=== PATIENT | female | born 1945 | race Hispanic/Latino ===

== ENCOUNTER 2020-05-25 14:10 | Inpatient (IN) | payer OTHER, MEDICARE ==
[2020-05-25 15:20] LABS: Basophils # (Auto) 0.1 K/mm3 (0.0-0.1); Basophils % (Auto) 1.2 % (0.0-1.8); Eosinophils # (Auto) 0.1 K/mm3 (0.0-0.4); Eosinophils % (Auto) 1.9 % (0.0-4.3); Hematocrit 33.7 % (30.3-42.9); Hemoglobin 10.7 gm/dl (10.1-14.3); Lymphocytes # (Auto) 2.2 K/mm3 (1.2-5.4); Lymphocytes % (Auto) 32.2 % (13.4-35.0); Mean Corpuscular HGB Conc 32 % (30-34); Mean Corpuscular Volume 91 fl (79-97); Monocytes # (Auto) 0.6 K/mm3 (0.0-0.8); Monocytes % (Auto) 8.6 % (0.0-7.3); Platelet Count 247 K/mm3 (140-440); Red Blood Count 3.73 M/mm3 (3.65-5.03); Red Cell Distribution Width 17.1 % (13.2-15.2)
[2020-05-25] MEDS ORDERED: SODIUM CHLORIDE 0.9% 500 ML 500 ML IV ONE (15:20)
--- NOTE | 2020-05-25 15:24 | Cat Scan Report ---
CT head/brain wo con INDICATION: Fall, head trauma. TECHNIQUE: Routine CT head without contrast. All CT scans at this location are performed using CT dose reduction for ALARA by means of automated exposure control. COMPARISON: None. FINDINGS: BRAIN / INTRACRANIAL CONTENTS: No acute hemorrhage, brain edema, mass effect, or hydrocephalus. Mary l umanzor-white differentiation. Moderate chronic small vessel ischemic change in the cerebral white mat ter. 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 CALVARIUM/SKULL BASE/CRANIOCERVICAL JUNCTION: No evidence of fracture. ORBITS: No significant abnormality of visualized orbits. SINUSES / MASTOIDS: No significant abnormality of visualized sinuses and mastoid air cells. ADDITIONAL FINDINGS: None. IMPRESSION: 1. No acute post-traumatic intracranial abnormality. Signer Name: Dyllan Morgan MD Signed: 05/25/2020 3:20 PM Workstation Name: [id number]
--- NOTE | 2020-05-25 15:31 | Emergency Department Report ---
<HALEYJOSE MIGUEL LOZOYA Michell - Last Filed: 05/25/20 15:52> ED General Adult HPI - General Chief complaint: Fall Stated complaint: FALL/FROM [facility] Time Seen by Provider: 05/25/20 14:32 Source: EMS Mode of arrival: Stretcher Limitations: Altered Mental Status - History of Present Illness Initial comments: This is a 74-year-old female who is an inpatient at a psychiatric facility. She is here with staff. The accompanying lady tells me that she was ambulating with a walker and somehow fell backwards onto her buttocks. She complained of posterior pain secondary to the impact involving the back of her head and her "sacrum". She denied any neck discomfort whatsoever. She arrives at this emergency department awake and alert. She is agitated and apparently has a psychiatric disorder. She does answer some questions appropriately but largely states "I do not know" in a loud voice. She is oriented x3. She does not further complain of discomfort of the back of her head and does deny neck pain. She has some lower lumbar/sacral discomfort. She is only partially cooperative with exam. Accompanying staff state that the incident occurred approximately 2 hours prior to arrival. She tells me that the patient's blood pressure was found to be in the 70s and that is what precipitated the call to EMS. When EMS arrived the pa zeke was awake and alert and had a systolic blood pressure of near 100 or in the 90s. Patient was transported for further evaluation without incident. -: Gradual Location: head, back Radiation: non-radiation Improves with: none Worsens with: none Associated Symptoms: denies other symptoms (Although limited history) - Related Data Allergies Allergy/AdvReac Type Severity Reaction Status Date / Time No Known Allergies Allergy Unverified 05/25/20 15:29 ED Review of Systems Comment: Unobtainable due to pts medical conditions (Poorly obtainable due to psychiatric disorder) ED Past Medical Hx - Past Medical History Previous Medical History?: Yes Hx Hypertension: Yes Hx Congestive Heart Failure: Yes Hx Diabetes: Yes Hx Renal Disease: Yes Additional medical history: CAD, pelvic mass, aortic stenosis - Surgical History Past Surgical History?: Yes Additional Surgical History: Tricuspid valve repair, appendectomy - Social History Smoking Status: Never Smoker Substance Use Type: None ED Physical Exam - General Limitations: Other (Psychiatric disorder) General appearance: alert, other (A bit agitated) - Head Head exam: Present: atraumatic (No bleeding no gross cephalhematoma), normocephalic - Eye Eye exam: Present: normal appearance. Absent: scleral icterus - ENT ENT exam: Present: mucous membranes moist - Neck Neck exam: Present: normal inspection, full ROM (No apparent limitation). Absent: tenderness, meningismus - Respiratory Respiratory exam: Present: normal lung sounds bilaterally. Absent: respiratory distress - Cardiovascular Cardiovascular Exam: Present: regular rate, normal rhythm. Absent: systolic murmur, diastolic murmur, rubs, gallop - GI/Abdominal GI/Abdominal exam: Present: soft, normal bowel sounds. Absent: distended, tenderness, guarding, rebound - Extremities Exam Extremities exam: Present: normal inspection - Back Exam Back exam: Present: normal inspection - Neurological Exam Neurological exam: Present: alert, oriented X3, CN II-XII intact. Absent: motor sensory deficit - Psychiatric Psychiatric exam: Present: agitated, anxious - Skin Skin exam: Present: warm, dry, intact, normal color. Absent: rash ED Course - Reevaluation(s) Reevaluation #1: Patient was mildly hypotensive. A bolus of fluid was ordered. She remained quite agitated. She is given a case picker dose of chemical sedation to facilitate her work-up. Admission to the hospital is anticipated for hypotensive episode/near syncope as well as what ever else turns up in her medical screening. 05/25/20 15:41 Reevaluation #2: Signed out to Dr. Remi Robertson. 05/25/20 15:53 ED Medical Decision Making - Lab Data Result diagrams: 05/25/20 14:47 05/25/20 14:47 Laboratory Results - last 24 hr 05/25/20 05/25/20 05/25/20 14:47 14:47 14:47 WBC 6.8 RBC 3.73 Hgb 10.7 Hct 33.7 MCV 91 MCH 29 MCHC 32 RDW 17.1 H Plt Count 247 Lymph % (Auto) 32.2 [place] % (Auto) 8.6 H Eos % (Auto) 1.9 Baso % (Auto) 1.2 Lymph # 2.2 [place] # 0.6 Eos # 0.1 Baso # 0.1 Seg Neutrophils % 56.1 Seg Neutrophils # 3.8 PT 13.6 INR 1.03 APTT 24.5 D-Dimer 877.39 H Sodium 141 Potassium 4.3 Chloride 100.9 Carbon Dioxide 25 Anion Gap 19 BUN 31 H Creatinine 2.4 H Estimated GFR 20 BUN/Creatinine Ratio 13 Glucose 103 H Calcium 9.4 Magnesium Total Bilirubin Direct Bilirubin Indirect Bilirubin AST ALT Alkaline Phosphatase Troponin T NT-Pro-B Natriuret Pep Total Protein Albumin Albumin/Globulin Ratio 05/25/20 14:47 WBC RBC Hgb Hct MCV MCH MCHC RDW Plt Count Lymph % (Auto) [place] % (Auto) Eos % (Auto) Baso % (Auto) Lymph # [place] # Eos # Baso # Seg Neutrophils % Seg Neutrophils # PT INR APTT D-Dimer Sodium Potassium Chloride Carbon Dioxide Anion Gap BUN Creatinine Estimated GFR BUN/Creatinine Ratio Glucose Calcium Magnesium 2.50 H Total Bilirubin 0.60 Direct Bilirubin 0.3 H Indirect Bilirubin 0.3 AST 24 ALT 12 Alkaline Phosphatase 52 Troponin T 0.011 NT-Pro-B Natriuret Pep 970.6 H Total Protein 6.3 Albumin 3.4 L Albumin/Globulin Ratio 1.2 ED Disposition Clinical Impression: Hypotensive episode, Acute renal failure, Fall Disposition: DC-09 OP ADMIT IP TO THIS HOSP Condition: Stable <SHASHI SHANKRA - Last Filed: 05/25/20 18:34> ED Review of Systems ROS: Stated complaint: FALL/FROM [facility] Other details as noted in HPI ED Course Vital Signs 05/25/20 05/25/20 05/25/20 14:24 14:44 16:30 Temperature 98.4 F Pulse Rate 60 59 L Respiratory 16 16 18 Rate Blood Pressure 101/50 Blood Pressure 107/49 [Left] O2 Sat by Pulse 97 97 Oximetry ED Medical Decision Making - Lab Data Result diagrams: 05/25/20 14:47 05/25/20 14:47 - EKG Data -: EKG Interpreted by Me EKG shows normal: sinus rhythm Rate: normal - EKG Data Interpretation: no acute changes - Radiology Data Radiology results: report reviewed - Medical Decision Making This is a 74-year-old female who is an inpatient at a psychiatric facility. She is here with staff. The accompanying lady tells me that she was ambulating with a walker and somehow fell backwards onto her buttocks. She complained of posterior pain secondary to the impact involving the back of her head and her "sacrum". She denied any neck discomfort whatsoever. She arrives at this emergency department awake and alert. She is agitated and apparently has a psy chiatric disorder. She does answer some questions appropriately but largely states "I do not know" in a loud voice. She is oriented x3. She does not further complain of discomfort of the back of her head and does deny neck pain. She has some lower lumbar/sacral discomfort. She is only partially cooperative with exam. Accompanying staff state that the incident occurred approximately 2 hours prior to arrival. She tells me that the patient's blood pressure was found to be in the 70s and that is what precipitated the call to EMS. When EMS arrived the patient was awake and alert and had a systolic blood pressure of near 100 or in the 90s. Patient was transported for further evaluation without incident. IV access obtained and patient received normal saline with significant improvement in her blood pressure. Labs reviewed and showed a creatinine of 2.4 indicating possible acute versus acute on chronic renal failure most likely secondary to dehydration. CT brain and a CT lumbar spine is negative for acute finding. D-dimer elevated and patient had a VQ scan of the chest and it came back as low probability for pulmonary embolism. I discussed the patient with Suellen Daniel, he agreed to admit the patient to medical service for further management. Critical Care Time: Yes Critical care time in (mins) excluding proc time.: 30 Critical care attestation.: If time is entered above; I have spent that time in minutes in the direct care of this critically ill patient, excluding procedure time. ED Disposition Is pt being admited?: Yes
[2020-05-25 15:33] LABS: INR 1.03 (0.87-1.13); Partial Thromboplastin Time 24.5 Sec. (24.2-36.6)
--- NOTE | 2020-05-25 15:38 | Cat Scan Report ---
CT LUMBAR SPINE WITHOUT CONTRAST INDICATION: Fall, lumbar spine pain. TECHNIQUE: Axial CT images of the spine were obtained. Sagittal and coronal reformatted images were produced. Al l CT scans at this location are performed using CT dose reduction for ALARA by means of automated exp osure control. COMPARISON: None available. FINDINGS: ACUTE FRACTURE(S) OR SUBLUXATION: None. SPINAL DEGENERATIVE CHANGES: There is grade 1 degenerative anterolisthesis of L4 and L5 due to bilate ral facet DJD. There is moderate generalized spondylosis with multilevel osteophytes. There is mild c entral canal stenosis at L2-3 and L3-4 due to endplate osteophyte formation. PARASPINAL SOFT TISSUES: No soft tissue swelling or other acute abnormalities. ADDITIONAL FINDINGS: No significant additional findings. IMPRESSION: 1. No acute fracture or subluxation in the spine in neutral position. 2. Multilevel degenerative changes in lumbar spine as detailed above. Signer Name: Dyllan Morgan MD Signed: 05/25/2020 3:33 PM Workstation Name: [id number]
[2020-05-25] MEDS ORDERED: LORazepam 2 MG/ML VIAL IM ONE (15:39)
[2020-05-25] MEDS ORDERED: ZIPRASIDONE MESYLATE 20 MG VIAL IM ONE (15:39)
[2020-05-25] MEDS ORDERED: LORazepam 2 MG/ML VIAL ONE (15:42)
[2020-05-25 15:43] LABS: Calcium 9.4 mg/dL (8.4-10.2)
[2020-05-25] MEDS ORDERED: WATER FOR INJ Sterile (PF) 10 ML ONE (15:43)
[2020-05-25 15:48] LABS: Albumin 3.4 g/dL (3.9-5); Bilirubin,Direct 0.3 mg/dL (0-0.2)
[2020-05-25] MEDS ORDERED: SODIUM CHLORIDE 0.9% 1000 ML 1,000 ML IV ONE (16:58)
--- NOTE | 2020-05-25 17:07 | XRay Report ---
CHEST 1 VIEW 05/25/2020 3:56 PM INDICATION / CLINICAL INFORMATION: chest pain. COMPARISON: None available. FINDINGS: SUPPORT DEVICES: None. HEART / MEDIASTINUM: Heart is mildly enlarged. TAVR prosthesis is present. LUNGS / PLEURA: No significant pulmonary or pleural abnormality. No pneumothorax. ADDITIONAL FINDINGS: No significant additional findings. IMPRESSION: 1. No acute findings. Signer Name: Evelia Moya MD Signed: 05/25/2020 5:02 PM Workstation Name: [id number]
--- NOTE | 2020-05-25 18:27 | Nuclear Medicine Report ---
NUCLEAR MEDICINE PERFUSION LUNG SCAN INDICATION / CLINICAL INFORMATION: hypotension and elevated d-dimer. TECHNIQUE: 5.0 mCi of Tc-99m MAA were given by IV. COMPARISON: Chest radiograph dated 05/25/20. FINDINGS: PERFUSION: No significant perfusion defects. ADDITIONAL FINDINGS: None. IMPRESSION: 1. Low probability for pulmonary embolism. Signer Name: Evelia Moya MD Signed: 05/25/2020 6:23 PM Workstation Name: [id number]
[2020-05-26] MEDS ORDERED: ACETAMINOPHEN 325 MG TAB PO PRN (01:14)
[2020-05-26] MEDS ORDERED: HYDROmorphone 1 MG/1 ML INJ IV PRN (01:14)
[2020-05-26] MEDS ORDERED: ONDANSETRON 4 MG/2 ML INJ IV PRN (01:14)
--- NOTE | 2020-05-26 01:20 | History and Physical Report ---
History of Present Illness Date of examination: 05/25/20 Date of admission: 05/25/20 18:38 Chief complaint: Fall and syncope History of present illness: 74-year-old female with history of hypertension, congestive heart failure, diabetes, renal disease apparently fell backwards on her buttocks. Patient is agitated and is at the psychiatric facility. Denies any neck pain etc. Has low back and lumbar and sacral disc comfort. In the emergency room her creatinine was high and patient was admitted for syncope and acute kidney injury. - Past Medical History Previous Medical History?: Yes Hypertension: Yes Congestive Heart Failure: Yes Diabetes: Yes Renal Disease: Yes Additional medical history: CAD, pelvic mass, aortic stenosis - Surgical History Past Surgical History?: Yes Additional Surgical History: Tricuspid valve repair, appendectomy - Social History Smoking Status: Never Smoker Substance Use Type: None family history Htn Review of Systems Constitutional no weight loss or weight gain no fever or chills HEENT no sore throat no post nasal drip no diplopia Neck no neck stiffness no lymph gland enlargement Chest and lungs no shortness of breath cough or wheezing CVS no chest pain no diaphoresis no palpitations GI no nausea no vomiting no diarrhea Genitourinary system no dysuria no flank pain 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 system 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 Skin no rash no itching Psychiatric no depression no homicidal or suicidal tendencies Hematologic no lymphedema or bruising Endocrine no polydipsia no polyuria no cold intolerance no heat intolerance Medications and Allergies Allergies Allergy/AdvReac Type Severity Reaction Status Date / Time No Known Allergies Allergy Unverified 05/25/20 15:29 Home Medications Medication Instructions Recorded Confirmed Last Taken Type Fenofibrate 160 mg PO DAILY 05/26/20 05/26/20 Unknown History Ondansetron HCl [Zofran] 4 mg PO Q8H PRN 05/26/20 05/26/20 Unknown History Exam - Constitutional Vitals: Temp Pulse Resp BP Pulse Ox 97.4 F L 54 L 20 109/31 97 05/25/20 20:00 05/25/20 20:00 05/25/20 21:00 05/25/20 20:00 05/25/20 21:00 General appearance: Present: no acute distress, well-nourished - EENT Eyes: Present: PERRL ENT: hearing intact, clear oral mucosa - Neck Neck: Present: supple, normal ROM - Respiratory Respiratory effort: normal Respiratory: bilateral: CTA - Cardiovascular Heart Sounds: Present: S1 & S2. Absent: rub, click - Extremities Extremities: pulses symmetrical, No edema Peripheral Pulses: within normal limits - Abdominal General gastrointestinal: Present: soft, non-tender, non-distended, normal bowel sounds Female genitourinary: Present: normal - Integumentary Integumentary: Present: clear, warm, dry - 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: gait normal, strength equal bilaterally - Psychiatric Psychiatric: appropriate mood/affect, intact judgment & insight - Neurologic Neurologic: CNII-XII intact, moves all extremities HEART Score - HEART Score Troponin: Troponin T 0.011 ng/mL (0.00-0.029) 05/25/20 14:47 Results - Labs CBC & Chem 7: 05/27/20 07:01 05/27/20 07:01 Labs: Laboratory Last Values WBC 6.8 K/mm3 (4.5-11.0) 05/25/20 14:47 RBC 3.73 M/mm3 (3.65-5.03) 05/25/20 14:47 Hgb 10.7 gm/dl (10.1-14.3) 05/25/20 14:47 Hct 33.7 % (30.3-42.9) 05/25/20 14:47 MCV 91 fl (79-97) 05/25/20 14:47 MCH 29 pg (28-32) 05/25/20 14:47 MCHC 32 % (30-34) 05/25/20 14:47 RDW 17.1 % (13.2-15.2) H 05/25/20 14:47 Plt Count 247 K/mm3 (140-440) 05/25/20 14:47 Lymph % (Auto) 32.2 % (13.4-35.0) 05/25/20 14:47 [place] % (Auto) 8.6 % (0.0-7.3) H 05/25/20 14:47 Eos % (Auto) 1.9 % (0.0-4.3) 05/25/20 14:47 Baso % (Auto) 1.2 % (0.0-1.8) 05/25/20 14:47 Lymph # 2.2 K/mm3 (1.2-5.4) 05/25/20 14:47 [place] # 0.6 K/mm3 (0.0-0.8) 05/25/20 14:47 Eos # 0.1 K/mm3 (0.0-0.4) 05/25/20 14:47 Baso # 0.1 K/mm3 (0.0-0.1) 05/25/20 14:47 Seg Neutrophils % 56.1 % (40.0-70.0) 05/25/20 14:47 Seg Neutrophils # 3.8 K/mm3 (1.8-7.7) 05/25/20 14:47 PT 13.6 Sec. (12.2-14.9) 05/25/20 14:47 INR 1.03 (0.87-1.13) 05/25/20 14:47 APTT 24.5 Sec. (24.2-36.6) 05/25/20 14:47 D-Dimer 877.39 ng/mlDDU (0-234) H 05/25/20 14:47 Sodium 141 mmol/L (137-145) 05/25/20 14:47 Potassium 4.3 mmol/L (3.6-5.0) 05/25/20 14:47 Chloride 100.9 mmol/L (98-107) 05/25/20 14:47 Carbon Dioxide 25 mmol/L (22-30) 05/25/20 14:47 Anion Gap 19 mmol/L 05/25/20 14:47 BUN 31 mg/dL (7-17) H 05/25/20 14:47 Creatinine 2.4 mg/dL (0.6-1.2) H 05/25/20 14:47 Estimated GFR 20 ml/min 05/25/20 14:47 BUN/Creatinine Ratio 13 % 05/25/20 14:47 Glucose 103 mg/dL (65-100) H 05/25/20 14:47 Lactic Acid 1.70 mmol/L (0.7-2.0) 05/25/20 16:09 Calcium 9.4 mg/dL (8.4-10.2) 05/25/20 14:47 Magnesium 2.50 mg/dL (1.7-2.3) H 05/25/20 14:47 Total Bilirubin 0.60 mg/dL (0.1-1.2) 05/25/20 14:47 Direct Bilirubin 0.3 mg/dL (0-0.2) H 05/25/20 14:47 Indirect Bilirubin 0.3 mg/dL 05/25/20 14:47 AST 24 units/L (5-40) 05/25/20 14:47 ALT 12 units/L (7-56) 05/25/20 14:47 Alkaline Phosphatase 52 units/L (35-129) 05/25/20 14:47 Troponin T 0.011 ng/mL (0.00-0.029) 05/25/20 14:47 NT-Pro-B Natriuret Pep 970.6 pg/mL (0-900) H 05/25/20 14:47 Total Protein 6.3 g/dL (6.3-8.2) 05/25/20 14:47 Albumin 3.4 g/dL (3.9-5) L 05/25/20 14:47 Albumin/Globulin Ratio 1.2 % 05/25/20 14:47 Short CBC 05/27/20 Range/Units 07:01 WBC 4.6 (4.5-11.0) K/mm3 Hgb 10.3 (10.1-14.3) gm/dl Hct 31.4 (30.3-42.9) % Plt Count 237 (140-440) K/mm3 BMP 05/27/20 07:01 Sodium 143 Potassium 3.7 Chloride 106.1 Carbon Dioxide 25 BUN 25 H Creatinine 1.8 H Glucose 94 Calcium 8.8 Liver Function 05/27/20 Range/Units 07:01 Total Bilirubin 0.60 (0.1-1.2) mg/dL AST 22 (5-40) units/L ALT 9 (7-56) units/L Alkaline Phosphatase 47 (35-129) units/L Albumin 3.0 L (3.9-5) g/dL Green/IV: IV Catheter Type [Right Peripheral IV Antecubital] Assessment and Plan Advance Directives: Yes VTE prophylaxis?: Chemical Plan of care discussed with patient/family: Yes - Patient Problems (1) MERRY (acute kidney injury) Current Visit: Yes Status: Acute Plan to address problem: IV Fluids for now (2) Fall Current Visit: Yes Status: Acute Qualifiers: Encounter type: initial encounter Qualified Code(s): W19.XXXA - Unspecified fall, initial encounter Plan to address problem: PT/OT (3) Hypotension Current Visit: Yes Status: Acute Qualifiers: Hypotension type: unspecified hypotension type Qualified Code(s): I95.9 - Hypotension, unspecified Plan to address problem: IV Fluids for now (4) T2DM (type 2 diabetes mellitus) Current Visit: Yes Status: Chronic Qualifiers: Diabetes mellitus prison insulin use: unspecified prison insulin use status Plan to address problem: Coverage for now (5) DVT prophylaxis Current Visit: Yes Status: Acute Plan to address problem: On heparin and GI prophylaxis
[2020-05-26 03:32] LABS: Basophils # (Auto) 0.1 K/mm3 (0.0-0.1); Basophils % (Auto) 1.2 % (0.0-1.8); Eosinophils # (Auto) 0.2 K/mm3 (0.0-0.4); Hematocrit 30.7 % (30.3-42.9); Hemoglobin 10.1 gm/dl (10.1-14.3); Lymphocytes # (Auto) 1.8 K/mm3 (1.2-5.4); Lymphocytes % (Auto) 31.5 % (13.4-35.0); Mean Corpuscular HGB Conc 33 % (30-34); Mean Corpuscular Volume 89 fl (79-97); Monocytes # (Auto) 0.6 K/mm3 (0.0-0.8); Monocytes % (Auto) 11.2 % (0.0-7.3); Platelet Count 222 K/mm3 (140-440); Red Blood Count 3.43 M/mm3 (3.65-5.03); Red Cell Distribution Width 16.7 % (13.2-15.2)
[2020-05-26 03:39] LABS: Calcium 9.1 mg/dL (8.4-10.2)
[2020-05-26] MEDS ORDERED: FAMOTIDINE 20 MG TAB PO SCH (10:00)
[2020-05-26] MEDS ORDERED: FAMOTIDINE 20 MG TAB ONE (10:01)
[2020-05-26] MEDS: oxyCODONE /ACETAMINOPHEN 5-325MG TAB PO PRN (10:05)
[2020-05-26] MEDS ORDERED: oxyCODONE /ACETAMINOPHEN 5-325MG TAB ONE (10:05)
[2020-05-26] MEDS: FAMOTIDINE 10 MG TAB PO SCH ×2 (10:07→22:30)
[2020-05-26] MEDS ORDERED: ZIPRASIDONE MESYLATE 20 MG VIAL IM ONE ×2 (11:35→12:00)
[2020-05-26] MEDS ORDERED: SODIUM CHLORIDE 0.9% 1000 ML 1,000 ML ONE (11:36)
--- NOTE | 2020-05-26 16:05 | Vascular Lab Report ---
"DUPLEX DOPPLER ULTRASOUND CAROTID, BILATERAL INDICATION: Syncope. FINDINGS: RIGHT CAROTID: Mild plaque Right CCA velocity: 68 cm/sec. Right ICA peak systolic velocity: 97 cm/sec. ICA/CCA PSV Ratio: 1.4. Right Vertebral Artery: Antegrade flow. LEFT CAROTID: Mild plaque Left CCA velocity: 4 cm/sec. Left ICA peak systolic velocity: 94 cm/sec. ICA/CCA PSV Ratio: 1.3. Left Vertebral Artery: Antegrade flow. IMPRESSION: 1. Right Internal Carotid Artery: Less than 50% diameter stenosis. 2. Left Internal Carotid Artery: Less than 50% diameter stenosis. Velocity criteria are extrapolated from diameter data as defined by the Society of Radiologists in Ul trasound Consensus Conference, Radiology 2003; 229;340-346. Degree of Stenosis (%) || ICA PSV (cm/sec) || Plaque estimate (%) || ICA/CCA PSV Ratio Normal <125 None <2.0 <50 <125 <50 <2.0 50-69 125-230 50 2.0-4.0 70 but less than 100 >230 50 >4.0 Near occlusion High, low, or none visible variable Total occlusion None visible; no lumen N/A Signer Name: Luis Matt MD Signed: 05/26/2020 4:00 PM Workstation Name: [id number]"
[2020-05-26] MEDS: SODIUM CHLORIDE 0.9% 1000 ML 1,000 ML IV SCH (22:31)
[2020-05-27 07:24] LABS: Basophils # (Auto) 0.1 K/mm3 (0.0-0.1); Basophils % (Auto) 1.2 % (0.0-1.8); Eosinophils # (Auto) 0.2 K/mm3 (0.0-0.4); Eosinophils % (Auto) 4.4 % (0.0-4.3); Hematocrit 31.4 % (30.3-42.9); Hemoglobin 10.3 gm/dl (10.1-14.3); Lymphocytes # (Auto) 1.6 K/mm3 (1.2-5.4); Lymphocytes % (Auto) 35.9 % (13.4-35.0); Mean Corpuscular HGB Conc 33 % (30-34); Mean Corpuscular Volume 90 fl (79-97); Monocytes # (Auto) 0.5 K/mm3 (0.0-0.8); Monocytes % (Auto) 11.3 % (0.0-7.3); Platelet Count 237 K/mm3 (140-440); Red Blood Count 3.48 M/mm3 (3.65-5.03); Red Cell Distribution Width 16.8 % (13.2-15.2)
[2020-05-27 07:59] LABS: Calcium 8.8 mg/dL (8.4-10.2)
--- NOTE | 2020-05-27 08:18 | Progress Note ---
Assessment and Plan - Patient Problems (1) MERRY (acute kidney injury) Current Visit: Yes Status: Acute Plan to address problem: IV Fluids for now Secondary to vasomotor nephropathy (2) Fall Current Visit: Yes Status: Acute Qualifiers: Encounter type: initial encounter Qualified Code(s): W19.XXXA - Unspecified fall, initial encounter Plan to address problem: PT/OT (3) Hypotension Current Visit: Yes Status: Acute Qualifiers: Hypotension type: unspecified hypotension type Qualified Code(s): I95.9 - Hypotension, unspecified Plan to address problem: IV Fluids for now (4) T2DM (type 2 diabetes mellitus) Current Visit: Yes Status: Chronic 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 Plan to address problem: Coverage for now (5) DVT prophylaxis Current Visit: Yes Status: Acute Plan to address problem: On heparin and GI prophylaxis Subjective Date of service: 05/26/20 Principal diagnosis: MERRY,Fall Interval history: Admitted for MERRY and fall and syncope Doing well Objective - Constitutional Vitals: Vital Signs - 12hr 05/26/20 05/26/20 05/27/20 22:10 23:00 00:20 Temperature 96.4 F L 96.6 F L Pulse Rate 79 78 67 Respiratory 18 18 Rate Blood Pressure 106/37 95/42 O2 Sat by Pulse 91 94 Oximetry General appearance: Present: no acute distress, well-nourished - EENT Eyes: PERRL, EOM intact ENT: hearing intact, clear oral mucosa Ears: bilateral: normal - Neck Neck: supple, normal ROM - Respiratory Respiratory effort: normal Respiratory: bilateral: CTA - Breasts Breasts: normal - Cardiovascular Rhythm: regular Heart Sounds: Present: S1 & S2. Absent: gallop, rub Extremities: pulses intact, No edema, normal color, Full ROM - Gastrointestinal General gastrointestinal: Present: soft, non-tender, non-distended, normal bowel sounds - Genitourinary Female genitourinary: normal - Integumentary Integumentary: clear, warm, dry - 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: 1, strength equal bilaterally - Neurologic Neurologic: moves all extremities - Psychiatric Psychiatric: memory intact, appropriate mood/affect, intact judgment & insight - Labs CBC & Chem 7: 05/27/20 07:01 05/27/20 07:01 Labs: Abnormal lab results 05/27/20 05/27/20 Range/Units 07:01 07:01 RBC 3.48 L (3.65-5.03) M/mm3 RDW 16.8 H (13.2-15.2) % Lymph % (Auto) 35.9 H (13.4-35.0) % [place] % (Auto) 11.3 H (0.0-7.3) % Eos % (Auto) 4.4 H (0.0-4.3) % BUN 25 H (7-17) mg/dL Creatinine 1.8 H (0.6-1.2) mg/dL Total Protein 5.1 L (6.3-8.2) g/dL Albumin 3.0 L (3.9-5) g/dL HEART Score - HEART Score Troponin: Troponin T 0.011 ng/mL (0.00-0.029) 05/25/20 14:47
[2020-05-27] MEDS: FAMOTIDINE 10 MG TAB PO SCH ×2 (17:27→22:36)
--- NOTE | 2020-05-27 17:32 | Progress Note ---
Assessment and Plan - Patient Problems (1) MERRY (acute kidney injury) Current Visit: Yes Status: Acute Plan to address problem: Acute kidney injury most likely secondary to vasomotor nephropathy. Diabetes is fairly well controlled. Treat with IV volume replacement. Creatinine has improved from 2.4 to currently 1.8. Therefore responding to fluids. (2) DVT prophylaxis Current Visit: Yes Status: Acute (3) Fall Current Visit: Yes Status: Acute Qualifiers: Encounter type: initial encounter Qualified Code(s): W19.XXXA - Unspecified fall, initial encounter Plan to address problem: Fall most likely near syncopal episode and not true syncope. Patient became very aggressive and noncompliant at the echo preceding states she may try again. Mental health consult has been obtained for patient safety. (4) Hypotension Current Visit: Yes Status: Acute Qualifiers: Hypotension type: unspecified hypotension type Qualified Code(s): I95.9 - Hypotension, unspecified Plan to address problem: At present has resolved. With IV fluid replacement. Current blood pressure 116/85. (5) Near syncope Current Visit: Yes Status: Acute (6) Schizophrenia Current Visit: Yes Status: Acute Plan to address problem: Mental health consult to assist with medical management. (7) T2DM (type 2 diabetes mellitus) Current Visit: Yes Status: Chronic Qualifiers: Diabetes mellitus halfway insulin use: unspecified halfway insulin use status Plan to address problem: We will treat with sliding scale insulin only at this time. Patient still with somewhat poor p.o. intake. Subjective Date of service: 05/27/20 Principal diagnosis: MERRY,Fall Interval history: Patient is a 74-year-old female with a history of hypertension congestive heart failure status post fall. Patient was thought to have a syncopal episode then fall. Went down for further evaluation cardiac evaluation today was very agitated noncompliant. Will need a mental health consult. Objective - Constitutional Vitals: Vital Signs - 12hr 05/27/20 05/27/20 05/27/20 07:00 09:26 16:01 Temperature 97.0 F L 97.3 F L Pulse Rate 62 64 76 Respiratory 16 16 Rate Blood Pressure 116/45 107/38 O2 Sat by Pulse 98 96 Oximetry General appearance: Present: no acute distress, well-nourished - EENT Eyes: PERRL, EOM intact ENT: hearing intact, clear oral mucosa Ears: bilateral: normal - Neck Neck: supple, normal ROM - Respiratory Respiratory effort: normal Respiratory: bilateral: CTA - Breasts Breasts: normal - Cardiovascular Rhythm: regular Heart Sounds: Present: S1 & S2. Absent: gallop, rub Extremities: pulses intact, No edema, normal color, Full ROM - Gastrointestinal General gastrointestinal: Present: soft, non-tender, non-distended, normal bowel sounds - Genitourinary Female genitourinary: normal - Integumentary Integumentary: clear, warm, dry - 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: 1, strength equal bilaterally - Neurologic Neurologic: moves all extremities - Psychiatric Psychiatric: memory intact, appropriate mood/affect, intact judgment & insight - Labs CBC & Chem 7: 05/27/20 07:01 05/27/20 07:01 Labs: Abnormal lab results 05/27/20 05/27/20 Range/Units 07:01 07:01 RBC 3.48 L (3.65-5.03) M/mm3 RDW 16.8 H (13.2-15.2) % Lymph % (Auto) 35.9 H (13.4-35.0) % [place] % (Auto) 11.3 H (0.0-7.3) % Eos % (Auto) 4.4 H (0.0-4.3) % BUN 25 H (7-17) mg/dL Creatinine 1.8 H (0.6-1.2) mg/dL Total Protein 5.1 L (6.3-8.2) g/dL Albumin 3.0 L (3.9-5) g/dL HEART Score - HEART Score Troponin: Troponin T 0.011 ng/mL (0.00-0.029) 05/25/20 14:47
[2020-05-27] MEDS ORDERED: LORazepam 2 MG/ML VIAL IV ONE (22:22)
[2020-05-27] MEDS: SODIUM CHLORIDE 0.9% 1000 ML 1,000 ML IV SCH (23:18)
[2020-05-28] MEDS: SODIUM CHLORIDE 0.9% 1000 ML 1,000 ML IV SCH ×2 (09:58→21:33)
[2020-05-28] MEDS: FAMOTIDINE 10 MG TAB PO SCH ×2 (09:58→21:31)
--- NOTE | 2020-05-28 11:11 | Discharge Summary ---
Providers - Providers Date of Admission: 05/26/20 12:00 Date of discharge: 05/28/20 Attending physician: KANDICE CASTILLO 05/27/20 08:47 Physical Therapy Evaluation and Treat [CONS] Routine Comment: Reason For Exam: difficulty with ambulation S/P fall 05/27/20 13:24 Consult to Mental Health [CONS] Urgent Reason For Exam: from [facility] Hospitalization Reason for admission: MERRY, syncope Condition: Stable Hospital course: 74-year-old female with history of hypertension, congestive heart failure, diabetes, renal disease apparently fell backwards on her buttocks. Patient is agitated and is at the psychiatric facility. Denies any neck pain etc. Has low back and lumbar and sacral disc comfort. In the emergency room her creatinine was high and patient was admitted for syncope and acute kidney injury. The pt underwent work up with carotid US and echo essentially negative. V/Q also negative. CReatinine and hypotension improved to baseline with IVF hydration. D/C time 35 min Disposition: TO HOME OR SELFCARE Time spent for discharge: 35 - Discharge Diagnoses (1) MERRY (acute kidney injury) Status: Acute (2) Acute renal failure Status: Acute (3) Hypotension Status: Acute Qualifiers: Hypotension type: unspecified hypotension type Qualified Code(s): I95.9 - Hypotension, unspecified (4) Near syncope Status: Acute (5) Schizophrenia Status: Acute (6) T2DM (type 2 diabetes mellitus) Status: Chronic Qualifiers: Diabetes mellitus rn long term care insulin use: unspecified rn long term care insulin use status Core Measure Documentation - Palliative Care Palliative Care/ Comfort Measures: Not Applicable - Core Measures Any of the following diagnoses?: none Exam - Constitutional Vitals: Temp Pulse Resp BP Pulse Ox 98.2 F 63 18 112/48 95 05/28/20 09:07 05/28/20 09:07 05/28/20 09:07 05/28/20 09:07 05/28/20 09:07 General appearance: Present: no acute distress, well-nourished - EENT Eyes: Present: PERRL ENT: hearing intact, clear oral mucosa - Neck Neck: Present: supple, normal ROM - Respiratory Respiratory effort: normal Respiratory: bilateral: CTA - Cardiovascular Heart Sounds: Present: S1 & S2. Absent: rub, click - Extremities Extremities: pulses symmetrical, No edema Peripheral Pulses: within normal limits - Abdominal General gastrointestinal: Present: soft, non-tender, non-distended, normal bowel sounds Female genitourinary: Present: normal - Integumentary Integumentary: Present: clear, warm, dry - 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: gait normal, strength equal bilaterally - Psychiatric Psychiatric: appropriate mood/affect, intact judgment & insight - Neurologic Neurologic: CNII-XII intact, moves all extremities Plan Activity: advance as tolerated Weight Bearing Status: Weight Bear as Tolerated Diet: regular Special Instructions: physical therapy, home health RN Follow up with: OBDULIA FIORE [Other] - 3-5 Days
[2020-05-28 11:53] LABS: Calcium 5.8 mg/dL (8.4-10.2)
[2020-05-28] MEDS ORDERED: POTASSIUM CHLORIDE ER 20 MEQ TAB PO ONE ×2 (12:31→16:30)
[2020-05-28] MEDS: ALPRAZolam 0.25 MG TAB PO PRN ×2 (12:51→21:31)
[2020-05-28] MEDS: POTASSIUM CHLORIDE 10 MEQ 10 MEQ/100 ML BAG IV SCH ×4 (13:30→21:32)
--- NOTE | 2020-05-28 14:06 | Consultation ---
History of Present Illness - Reason for Consult Consult date: 05/28/20 Reason for consult: from [facility] - History of Present Psychiatric Illness Valeri Hodge is a 74y/o female patient who presented to the ER from [place] for a fall. During my interview with the patient today, she is a/o x 3. She makes good eye contact. She is slightly irritable. The patient is a/o x 3. She is a poor historian. The patient states she came to the hospital "from [place] because I fell while I was waking." She says she initially went to [place] because "I threatened to kill myself." She says, "I don't feel like that. I say that every time I get upset." When asking the patient again did she have any thoughts of harming herself, Mrs. Hodge says in a loud voice, "no, I'm not suicidal. I just told you I got mad." She also denies hallucinations of any kind. The patient describes her mood as "grumpy." She then says, "this is just how I am." She could not recall any of her meds. She says, "I think I have schizophrenia." She denies any suicidal attempt in the past. The patient denies illicit drug use, alcohol or nicotine. Called Lavonne Wharton sister at [phone] to speak to her and get daughter's contact information, did not receive an answer. I also called the number listed on the Clinical data at [phone]. Did not receive an answer, left a voice message. PAST PSYCHIATRIC HISTORY: Diagnoses: schizophrenia Suicide attempts or Self-harm behavior: Denies Prior psychiatric hospitalizations: Once Substance Abuse history: Denies Previous psychiatric medications tried: Could not recall Outpatient treatment: Could not recall PAST MEDICAL HISTORY: None reported Family Psychiatric History: None reported or documented SOCIAL HISTORY Marital Status: Single Living Arrangements: With my daughter Employment Status: Disabled Access to guns/weapons: Denies Education: History of Abuse: Denies Legal History: none reported REVIEW OF SYSTEMS Constitutional: Negative for weight loss ENT: Negative for stridor Respiratory: Negative for cough or hemoptysis All other systems reviewed and are negative MENTAL STATUS EXAMINATION General Appearance: Dressed appropriately Behavior: easily irritable, cooperative Mood: "grumpy" Affect and affective range: Congruent with stated mood Thought Process: goal oriented Speech: Normal rate and volume Thought Content: Suicidal Ideation: Denies Homicidal Ideation: Denies Hallucinations: Denies Delusions: None elicited Insight and Judgment: Limited Memory/Cognition: Limited Attention: Normal ASSESSMENT History of Schizophrenia RECOMMENDATIONS Continue home medications Sitter: Defer to primary Medical: per primary Disposition: Do not recommend acute inpatient psychiatric treatment at this [facility]. May discharge once medically clear. The patient understands that if suicidal thoughts or thoughts of self harm are to arise she is to seek immediate assistance, including the crisis hotline, 911 or/and ER. The linseed oil boiler to further discuss the safety plan with the patient and give the patient resources for outpatient psychiatry The patient is to follow up with outpatient psych or primary in 7 to 14 days upon discharge Will sign off. Thank you for this consult. Please call with any questions or concerns. Medications and Allergies Allergies Allergy/AdvReac Type Severity Reaction Status Date / Time No Known Allergies Allergy Unverified 05/25/20 15:29 Home Medications Medication Instructions Recorded Confirmed Last Taken Type Fenofibrate 160 mg PO DAILY 05/26/20 05/26/20 Unknown History Ondansetron HCl [Zofran] 4 mg PO Q8H PRN 05/26/20 05/26/20 Unknown History Active Meds: Active Medications Acetaminophen (Tylenol) 650 mg PO Q4H PRN PRN Reason: Pain MILD(1-3)/Fever >100.5/IGNACIO Alprazolam (Xanax) 0.25 mg PO Q8H PRN PRN Reason: Anxiety Last Admin: 05/28/20 12:51 Dose: 0.25 mg Documented by: Famotidine (Pepcid) 10 mg PO BID VILLA Last Admin: 05/28/20 09:58 Dose: 10 mg Documented by: Hydromorphone HCl (Dilaudid) 0.5 mg IV Q3H PRN PRN Reason: Pain , Severe (7-10) Sodium Chloride (Nacl 0.9% 1000 Ml) 1,000 mls @ 75 mls/hr IV DIRECT VILLA Last Admin: 05/28/20 09:58 Dose: 75 mls/hr Documented by: Potassium Chloride (Kcl 10meq/100ml) 10 meq in 100 mls @ 100 mls/hr IV Q1H VILLA Stop: 05/28/20 16:59 Ondansetron HCl (Zofran) 4 mg IV Q8H PRN PRN Reason: Nausea And Vomiting Oxycodone/Acetaminophen (Percocet 5/325) 1 tab PO Q6H PRN PRN Reason: Pain, Moderate (4-6) Last Admin: 05/26/20 10:05 Dose: 1 tab Documented by: Potassium Chloride (K-Dur) 40 meq PO ONCE ONE Stop: 05/28/20 16:31 Sodium Chloride (Sodium Chloride Flush Syringe 10 Ml) 10 ml IV BID VILLA Last Admin: 05/28/20 09:58 Dose: 10 ml Documented by: Sodium Chloride (Sodium Chloride Flush Syringe 10 Ml) 10 ml IV PRN PRN PRN Reason: LINE FLUSH Mental Status Exam - Vital signs Last Vital Signs Temp 98.2 F 05/28/20 09:07 Pulse 63 05/28/20 09:07 Resp 18 05/28/20 09:07 BP 112/48 05/28/20 09:07 Pulse Ox 95 05/28/20 09:07 Results Result Diagrams: 05/27/20 07:01 05/28/20 10:46 Abnormal lab results 05/28/20 Range/Units 10:46 Sodium 146 H (137-145) mmol/L Potassium 2.6 L* D (3.6-5.0) mmol/L Chloride 118.0 H (98-107) mmol/L Carbon Dioxide 18 L D (22-30) mmol/L Calcium 5.8 L* D (8.4-10.2) mg/dL All other labs normal.
[2020-05-28 18:42] LABS: Calcium 9.1 mg/dL (8.4-10.2)
[2020-05-28] MEDS: oxyCODONE /ACETAMINOPHEN 5-325MG TAB PO PRN (21:31)
[2020-05-29] MEDS: FAMOTIDINE 10 MG TAB PO SCH (09:19)
--- NOTE | 2020-05-29 12:23 | Progress Note ---
Assessment and Plan Assessment and plan: (1) MERRY (acute kidney injury) Current Visit: Yes Status: Acute Plan to address problem: Acute kidney injury most likely secondary to vasomotor nephropathy. Diabetes is fairly well controlled. Treat with IV volume replacement. Creatinine has improved from 2.4 to currently 1.8. creatinine now improved to 1.0 (2) DVT prophylaxis Current Visit: Yes Status: Acute (3) Fall Current Visit: Yes Status: Acute Qualifiers: Encounter type: initial encounter Qualified Code(s): W19.XXXA - Unspecified fall, initial encounter Plan to address problem: Fall most likely near syncopal episode and not true syncope. Patient became very aggressive and noncompliant at the echo preceding states she may try again. Mental health consult has been obtained for patient safety. Mental health did not recommend acute inpatient psychiatric treatment at this time. May discharge once medically clear. The patient understands that if suicidal thoughts or thoughts of self harm are to arise she is to seek immediate assistance, including the crisis hotline, 911 or/and ER. (4) Hypotension Current Visit: Yes Status: Acute Qualifiers: Hypotension type: unspecified hypotension type Qualified Code(s): I95.9 - Hypotension, unspecified Plan to address problem: At present has resolved. With IV fluid replacement. (5) Near syncope Current Visit: Yes Status: Acute (6) Schizophrenia Current Visit: Yes Status: Acute Plan to address problem: Mental health consult to assist with medical management. (7) T2DM (type 2 diabetes mellitus) Current Visit: Yes Status: Chronic Qualifiers: Diabetes mellitus terminal operations supervisor insulin use: unspecified terminal operations supervisor insulin use status Plan to address problem: We will treat with sliding scale insulin only at this time. Patient still with somewhat poor p.o. intake. 8)Hypokalemia. Replete potassium. - Patient Problems (1) MERRY (acute kidney injury) Current Visit: Yes Status: Acute (2) Acute renal failure Current Visit: Yes Status: Acute (3) Hypotension Current Visit: Yes Status: Acute Qualifiers: Hypotension type: unspecified hypotension type Qualified Code(s): I95.9 - Hypotension, unspecified (4) Near syncope Current Visit: Yes Status: Acute (5) Schizophrenia Current Visit: Yes Status: Acute (6) T2DM (type 2 diabetes mellitus) Current Visit: Yes Status: Chronic Qualifiers: Diabetes mellitus mcfp insulin use: unspecified mcfp insulin use status History Interval history: No new issues overnight Hospitalist Physical - Constitutional Vitals: Temp Pulse Resp BP Pulse Ox 97.3 F L 53 L 18 140/63 97 05/29/20 07:39 05/29/20 07:39 05/29/20 07:39 05/29/20 07:39 05/29/20 07:39 General appearance: Present: no acute distress, well-nourished - EENT Eyes: Present: PERRL, EOM intact ENT: hearing intact, clear oral mucosa, dentition normal - Neck Neck: Present: supple, normal ROM - Respiratory Respiratory effort: normal Respiratory: bilateral: CTA - Cardiovascular Rhythm: regular Heart Sounds: Present: S1 & S2. Absent: gallop, rub - Extremities Extremities: no ischemia, No edema, Full ROM - Abdominal General gastrointestinal: soft, non-tender, non-distended, normal bowel sounds - Integumentary Integumentary: Present: clear, warm, dry - Neurologic Neurologic: CNII-XII intact, moves all extremities HEART Score - HEART Score Troponin: Troponin T 0.011 ng/mL (0.00-0.029) 05/25/20 14:47 Results - Labs CBC & Chem 7: 05/27/20 07:01 05/28/20 18:09 Labs: Laboratory Last Values WBC 4.6 K/mm3 (4.5-11.0) 05/27/20 07:01 RBC 3.48 M/mm3 (3.65-5.03) L 05/27/20 07:01 Hgb 10.3 gm/dl (10.1-14.3) 05/27/20 07:01 Hct 31.4 % (30.3-42.9) 05/27/20 07:01 MCV 90 fl (79-97) 05/27/20 07:01 MCH 30 pg (28-32) 05/27/20 07:01 MCHC 33 % (30-34) 05/27/20 07:01 RDW 16.8 % (13.2-15.2) H 05/27/20 07:01 Plt Count 237 K/mm3 (140-440) 05/27/20 07:01 Lymph % (Auto) 35.9 % (13.4-35.0) H 05/27/20 07:01 [place] % (Auto) 11.3 % (0.0-7.3) H 05/27/20 07:01 Eos % (Auto) 4.4 % (0.0-4.3) H 05/27/20 07:01 Baso % (Auto) 1.2 % (0.0-1.8) 05/27/20 07:01 Lymph # 1.6 K/mm3 (1.2-5.4) 05/27/20 07:01 [place] # 0.5 K/mm3 (0.0-0.8) 05/27/20 07:01 Eos # 0.2 K/mm3 (0.0-0.4) 05/27/20 07:01 Baso # 0.1 K/mm3 (0.0-0.1) 05/27/20 07:01 Seg Neutrophils % 47.2 % (40.0-70.0) 05/27/20 07:01 Seg Neutrophils # 2.2 K/mm3 (1.8-7.7) 05/27/20 07:01 PT 13.6 Sec. (12.2-14.9) 05/25/20 14:47 INR 1.03 (0.87-1.13) 05/25/20 14:47 APTT 24.5 Sec. (24.2-36.6) 05/25/20 14:47 D-Dimer 877.39 ng/mlDDU (0-234) H 05/25/20 14:47 Sodium 143 mmol/L (137-145) 05/28/20 18:09 Potassium 4.0 mmol/L (3.6-5.0) D 05/28/20 18:09 Chloride 106.7 mmol/L (98-107) 05/28/20 18:09 Carbon Dioxide 24 mmol/L (22-30) 05/28/20 18:09 Anion Gap 16 mmol/L 05/28/20 18:09 BUN 20 mg/dL (7-17) H 05/28/20 18:09 Creatinine 1.5 mg/dL (0.6-1.2) H 05/28/20 18:09 Estimated GFR 34 ml/min 05/28/20 18:09 BUN/Creatinine Ratio 13 % 05/28/20 18:09 Glucose 136 mg/dL (65-100) H 05/28/20 18:09 Hemoglobin A1c 5.3 % (4-6) 05/26/20 02:36 Lactic Acid 1.70 mmol/L (0.7-2.0) 05/25/20 16:09 Calcium 9.1 mg/dL (8.4-10.2) D 05/28/20 18:09 Magnesium 2.50 mg/dL (1.7-2.3) H 05/25/20 14:47 Total Bilirubin 0.60 mg/dL (0.1-1.2) 05/27/20 07:01 Direct Bilirubin 0.3 mg/dL (0-0.2) H 05/25/20 14:47 Indirect Bilirubin 0.3 mg/dL 05/25/20 14:47 AST 22 units/L (5-40) 05/27/20 07:01 ALT 9 units/L (7-56) 05/27/20 07:01 Alkaline Phosphatase 47 units/L (35-129) 05/27/20 07:01 Troponin T 0.011 ng/mL (0.00-0.029) 05/25/20 14:47 NT-Pro-B Natriuret Pep 970.6 pg/mL (0-900) H 05/25/20 14:47 Total Protein 5.1 g/dL (6.3-8.2) L 05/27/20 07:01 Albumin 3.0 g/dL (3.9-5) L 05/27/20 07:01 Albumin/Globulin Ratio 1.4 % 05/27/20 07:01 Nasal Screen MRSA (PCR) Negative (Negative) 05/27/20 Unknown - Diagnostic Impressions Diagnostic Impressions: Echocardiogram 05/26/20 01:22 Transthoracic Echocardiogram Indication: Mitral Regurgitation BP: 105/52 Conclusions *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 *The mean gradient across the aortic valve prosthesis is 8.53 mmHg. There is no AR. *Global left ventricular systolic function is normal. *The estimated ejection fraction is 60-65%. *Mild concentric left ventricular hypertrophy is observed. *The left atrium is mild to moderately dilated. *There is mild mitral regurgitation. *There is trace tricuspid regurgitation. Findings Left Ventricle: The left ventricular chamber size is normal. Mild concentric left ventricular hypertrophy is observed. Global left ventricular systolic function is normal. The estimated ejection fraction is 60-65%. Left Atrium: The left atrium is mild to moderately dilated. Right Ventricle: The right ventricle is slightly dilated. Right Atrium: The right atrium is mildly dilated. Aortic Valve: There is no evidence of aortic regurgitation. There is no evidence of aortic stenosis. The mean gradient of the aortic valve is 8.53 mmHg. A bio-prosthetic aortic valve is present. The bio-prosthetic aortic valve appears to be functioning normally. Mitral Valve: The mitral valve leaflets are mildly thickened. There is mild mitral regurgitation. There is no evidence of mitral stenosis. Tricuspid Valve: There is trace tricuspid regurgitation. No pulmonary hypertension is noted. Pulmonic Valve: There is trace pulmonic regurgitation. Pericardium: There is no pericardial effusion. Aorta: There is no dilatation of the ascending aorta. There is no dilatation of the aortic root. Venous: The inferior vena cava appears normal in size. Measurements Chambers 2D Name Value Normal Range IVSd (2D) 0.91 cm (0.6 - 1.1) LVPWd (2D) 0.94 cm (0.6 - 1.1) LVIDd (2D) 3.73 cm (3.7 - 5.6) LVIDs (2D) 2.57 cm (2 - 3.8) LV FS (2D) 31.26 % - EF Teichholz (2D) 59.88 % - Ao root diameter (2D) 2.39 cm (2 - 3.7) Volumes/Mass Name Value Normal Range LA ESV SP 4CH (A/L) 47.62 ml - LA ESV SP 2CH (A/L) 50.79 ml - LA ESV BP (A/L) 51.98 ml - LA ESV BP (A/L) index 31.89 ml/m2 - LA ESV SP 4CH (MOD) 44.38 ml - LA ESV SP 2CH (MOD) 48.97 ml - LA ESV BP (MOD) 49.13 ml - LA ESV BP (MOD) index 30.14 ml/m2 - Diastolic/Systolic Function Name Value Normal Range MV E-wave Vmax 0.71 m/sec - MV deceleration time 302.22 msec - MV A-wave Vmax 0.95 m/sec - MV E:A ratio 0.75 ratio - Aortic Valve Name Value Normal Range AV Vmax 2.16 m/sec - AV VTI 52.69 cm - AV peak gradient 18.64 mmHg - AV mean gradient 8.53 mmHg - LVOT diameter 1.95 cm - LVOT Vmax 1.32 m/sec - LVOT VTI 32.23 cm - LVOT peak gradient 6.95 mmHg - LVOT mean gradient 3.16 mmHg - SV LVOT 96.33 ml - ELLIS (continuity Vmax) 1.83 cm2 - ELLIS (continuity VTI) 1.83 cm2 - Mitral Valve Name Value Normal Range MV PHT 78.14 msec - MVA (PHT) 2.82 cm2 - Tricuspid Valve Name Value Normal Range TV E-wave Vmax 0.65 m/sec - Pulmonic Valve/Qp:Qs Name Value Normal Range PV Vmax 0.73 m/sec - PV VTI 17.42 cm - PV peak gradient 2.12 mmHg - PV mean gradient 1.22 mmHg - RVOT Vmax 0.87 m/sec - RVOT VTI 22.18 cm - RVOT peak gradient 3 mmHg - Green/IV: Voiding Method Toilet IV Catheter Type [Right INT / Saline Lock Antecubital] Active Medications - Current Medications Current Medications: Generic Name Dose Route Start Last Admin Trade Name Freq PRN Reason Stop Dose Admin Acetaminophen 650 mg 05/26/20 01:14 Tylenol PO Q4H PRN Pain MILD(1-3)/Fever >100.5/IGNACIO Alprazolam 0.25 mg 05/28/20 12:30 05/28/20 21:31 Xanax PO 0.25 mg Q8H PRN Administration Anxiety Famotidine 10 mg 05/26/20 10:00 05/29/20 09:19 Pepcid PO 10 mg BID VILLA Administration Hydromorphone HCl 0.5 mg 05/26/20 01:14 Dilaudid IV Q3H PRN Pain , Severe (7-10) Sodium Chloride 1,000 mls @ 75 mls/hr 05/26/20 01:15 05/28/20 21:33 Nacl 0.9% 1000 Ml IV 75 mls/hr DIRECT VILLA Administration Ondansetron HCl 4 mg 05/26/20 01:14 Zofran IV Q8H PRN Nausea And Vomiting Oxycodone/Acetaminophen 1 tab 05/26/20 01:14 05/28/20 21:31 Percocet 5/325 PO 1 tab Q6H PRN Administration Pain, Moderate (4-6) Sodium Chloride 10 ml 05/26/20 10:00 05/29/20 09:20 Sodium Chloride Flush Syringe 10 Ml IV 10 ml BID VILLA Administration Sodium Chloride 10 ml 05/26/20 01:14 Sodium Chloride Flush Syringe 10 Ml IV PRN PRN LINE FLUSH
[2020-05-29 16:05] VITALS: BP 154/75
== END 2020-05-29 21:15 | disposition home health service (06) | DRG 314 ==
LOC: ED 14:10 → 4A 18:38 → IMCU 05-26 06:48 → 4A 05-26 08:59 → OBSVTOIN 05-26 12:00 → 4A 05-26 19:23
PROVIDERS: ADMIT Internal Medicine; ATTEND Hospitalist
DX: I95.9 Hypotension, unspecified (principal); N17.0 Acute kidney failure with tubular necrosis; E11.9 Type 2 diabetes mellitus without complications; I50.9 Heart failure, unspecified; I11.0 Hypertensive heart disease with heart failure; E87.6 Hypokalemia; I25.10 Atherosclerotic heart disease of native coronary artery without angina pectoris; W18.30XA Fall on same level, unspecified, initial encounter; F20.9 Schizophrenia, unspecified; Z79.899 Other long term (current) drug therapy; Y93.89 Activity, other specified; Z90.49 Acquired absence of other specified parts of digestive tract; Y92.89 Other specified places as the place of occurrence of the external cause; Y99.8 Other external cause status
CPT/HCPCS: 36415; 70450; 71045; 72131; 78580; 80048; 80053; 80076; 82140; 83036; 83735; 83880; 84484; 85025; 85379; 85610; 85730; 87641; 93005; 93306; 93880; G0378; A9540; J2060; J3486; J7030; J7040